=== PATIENT | female | born 1995 | race Caucasian/White ===

== ENCOUNTER 2022-04-02 10:10 | Emergency (ER) | payer MEDICAID, OTHER ==
[~2022-04-02] VITALS: Ht 162.6 cm; Wt 70.9 kg
[2022-04-02 10:36] VITALS: BP 132/72
[2022-04-02] MEDS ORDERED: IBUPROFEN 800 MG TAB PO ONE (10:45)
[2022-04-02] MEDS ORDERED: IBUP800T27 PO (11:16)
== END 2022-04-02 11:23 | disposition home or self-care (01) ==
LOC: ER 10:10
DX: S46.911A Strain of unspecified muscle, fascia and tendon at shoulder and upper arm level, right arm, initial encounter (principal); Z79.1 Long term (current) use of non-steroidal anti-inflammatories (NSAID); V89.2XXA Person injured in unspecified motor-vehicle accident, traffic, initial encounter; Y93.89 Activity, other specified; Y92.410 Unspecified street and highway as the place of occurrence of the external cause; Y99.8 Other external cause status
CPT/HCPCS: 73030

== ENCOUNTER 2023-04-20 17:39 | Emergency (ER) | payer OTHER ==
[~2023-04-20] VITALS: Ht 162.6 cm; Wt 68.2 kg
[~2023-04-20 17:39] MED LIST: IBUP-1456 PO
[2023-04-20 17:45] VITALS: BP 123/84; PULSE 112; RESP 20; TEMP 99.5; O2SAT 99
[2023-04-20] MEDS ORDERED: HYDROcodone-ACET 5/325MG TAB PO ONE (19:45)
[2023-04-20] MEDS ORDERED: IBUPROFEN 800 MG TAB PO ONE (19:45)
[2023-04-20] MEDS ORDERED: IBUP-1456 PO (22:06)
[2023-04-20] MEDS ORDERED: CYCL-614 PO (22:06)
== END 2023-04-20 22:11 | disposition home or self-care (01) ==
LOC: EDBD 17:39 → ER 17:39
DX: S46.811A Strain of other muscles, fascia and tendons at shoulder and upper arm level, right arm, initial encounter (principal); S16.1XXA Strain of muscle, fascia and tendon at neck level, initial encounter; S09.8XXA Other specified injuries of head, initial encounter; Z79.1 Long term (current) use of non-steroidal anti-inflammatories (NSAID); Z79.899 Other long term (current) drug therapy; V49.49XA Driver injured in collision with other motor vehicles in traffic accident, initial encounter; Y93.I9 Activity, other involving external motion; Y92.89 Other specified places as the place of occurrence of the external cause; Y99.8 Other external cause status
CPT/HCPCS: 70450; 70490; 73030

== ENCOUNTER 2024-04-28 07:10 | Emergency (ER) | payer OTHER ==
[~2024-04-28] VITALS: Ht 162.6 cm; Wt 71.8 kg
[~2024-04-28 07:10] MED LIST changes: +CYCL-614 PO
[2024-04-28 07:34] VITALS: BP 112/77; PULSE 91; RESP 17; TEMP 98.6; O2SAT 99
--- NOTE | 2024-04-28 07:38 | ED.PDOC ---
[facility] HPI Comments A 28 YEAR OLD FEMALE PRESENTS TO THE ED WITH COMPLAINT OF VAGINAL BLEEDING DURING . PATIENT STATES SHE IS CURRENTLY , BUT IS NOT SURE HOW FAR ALONG SHE IS AT THIS TIME AND HAS BEEN EXPERIENCING VAGINAL BLEEDING OFF AND ON FOR THE PAST 3 WEEKS WITH HER BLEEDING AND LEFT SIDED PELVIC CRAMPING STARTING AGAIN OVER THE LAST 1 WEEK. PATIENT NOTES SHE HAS BEEN TO [facility] WHERE HERE WAS CONFIRMED, BUT NOTES SHE WAS NOT TOLD HOW FAR ALONG SHE WAS DUE TO HER HCG BEING TOO LOW. PATIENT DENIES DYSURIA, HEMATURIA, VAGINAL DISCHARGE, FEVER, CHILLS, SHORTNESS OF BREATH, CHEST PAIN, ABDOMINAL PAIN, NAUSEA, VOMITING, HEADACHE, OR OTHER COMPLAINTS. NO OTHER SYMPTOMS OR MODIFYING FACTORS AT THIS TIME. PATIENT IS ALERT, ORIENTED X 4, AND HAS STEADY GAIT. Chief Complaint: Vaginal Bleed Time Seen by MD: 07:12 Reviewed Notes: Nurses Notes, Medications, Allergies Allergies: Coded Allergies: NO KNOWN ALLERGIES (Unverified , 04/20/23) Home Meds Active Scripts Cyclobenzaprine HCl (Cyclobenzaprine Hydrochlo) 5 Mg Tab, 5 MG PO TID PRN for 30 Days, #90 TAB Prov:SANDI ONEAL 04/20/23 Ibuprofen (Ibuprofen) 800 Mg Tab, 1 TAB PO TID PRN for 30 Days, #90 TAB 1 Refill Prov:SANDI ONEAL 04/20/23 Ibuprofen (Ibuprofen) 800 Mg Tab, 1 TAB PO TID, #30 TAB Prov:GENEVIEVE SNOW 04/02/22 Information Source: Patient Mode of Arrival: Ambulatory Timing: Days Prehospital treatment: None Severity: Moderate Vaginal Discharge: None Vaginal Lesions: None Bleeding Quality: Bright Red Vaginal Mass: None Onset Of Mass/Bleeding: Spontaneous Sexual Activity: Last Consensual [place]: Unknown Control: None History of: Current Blood Type: Unknown Symptoms of Possible : None Associated Signs and Symptoms: Vaginal Bleeding, Cramping Past Medical History PAST MEDICAL HISTORY: Denies Surgical History: Denies all surgeries UMBRELLA CUTTER History: Denies all UMBRELLA CUTTER Hx Family History Family History: Reviewed,noncontributory to illness Social History Smoker: Non-Smoker Alcohol: Denies ETOH Use Drugs: Denies Drug Use Lives In: Home Constitutional: denies: chills, diaphoresis, fatigue, fever, malaise, sweats, weakness, others EENTM: denies: blurred vision, double vision, ear bleeding, ear discharge, ear drainage, ear pain, ear ringing, eye pain, eye redness, hearing loss, mouth pain, mouth swelling, nasal discharge, nose bleeding, nose congestion, nose pain, photophobia, tearing, throat pain, throat swelling, voice changes, others Respiratory: denies: cough, hemoptysis, orthopnea, SOB at rest, shortness of breath, SOB with excertion, stridor, wheezing, others Cardiovascular: denies: chest pain, dizzy spells, diaphoresis, Dyspnea on exertion, edema, irregular heart beat, left arm pain, lightheadedness, palpitations, PND, syncope, others Gastrointestinal: denies: abdomen distended, abdominal pain, blood streaked bowels, constipated, diarrhea, dysphagia, difficulty swallowing, hematemesis, melena, nausea, poor appetite, poor fluid intake, rectal bleeding, rectal pain, vomiting, others Genitourinary: reports: abnormal vagina bleeding, pain (PELVIC CRAMPING), ; denies: burning, dyspareunia, dysuria, flank pain, frequency, hematuria, incontinence, vagina discharge, urgency, others Neurological: denies: dizziness, fainting, headache, left sided numbness, left sided weakness, numbness, paresthesia, pre-existing deficit, right sided numbness, right sided weakness, seizure, speech problems, tingling, tremors, weakness, others Musculoskeletal: denies: back pain, gout, joint pain, joint swelling, muscle pain, muscle stiffness, neck pain, others Integumetry: denies: bruises, change in color, change in hair/nails, dryness, laceration, lesions, lumps, rash, wounds, others Allergic/Immunocompromised: denies: Difficulty Healing, Frequent Infections, Hives, Itching, others Hematologic/Lymphatic: denies: anemia, blood clots, easy bleeding, easy bruising, swollen glands, others Endocrine: denies: excessive hunger, excessive sweating, excessive thirst, excessive urination, flushing, intolerance to cold, intolerance to heat, unexplained weight gain, unexplained weight loss, others Psychiatric: denies: anxiety, bipolar disorder, depression, hopeless, panic disorder, schizophrenia, sleepless, suicidal, others All Other Systems: Reviewed and Negative Physical Exam General Appearance: No Apparent Distress, Normal HEENT: Normal ENT Inspection, PERRL/EOMI, Pharynx Normal, TMs Normal Neck: Full Range of Motion, Non-Tender, Normal, Normal Inspection Respiratory: Chest Non-Tender, Lungs Clear, No Accessory Muscle Use, No Respiratory Distress, Normal Breath Sounds Cardiovascular: No Edema, No JVD, No Murmur, No Gallop, Normal Peripheral Pulses, Regular Rate/Rhythm Breast Exam: Deferred Gastrointestinal: No Organomegaly, Non Tender, No Pulsatile Mass, Normal Bowel Sounds, Soft Genitalia: Deferred Pelvic: Normal External Exam, Tender Adnexa (MILD TENDERNESS LEFT PELVIC, NO GUARDING AND REBOUND TENDERNESS. ), Vaginal Bleeding (MILD VAGINAL BLEEEING, NO ACTIVELY VAGINAL BLEEDING AND BLOOD CLOTS. ) Rectal: Deferred Extremities: No calf tenderness, Normal capillary refill, Normal inspection, Normal range of motion, Non-tender, No pedal edema Musculoskeletal : Apperance: Normal Neurologic: Alert, nitric acid plant operator II-XII nml as Tested, No Motor Deficits, Normal Affect, Normal Mood, No Sensory Deficits Cerebellar Function: Normal Reflexes: Normal Skin: Dry, Normal Color, Warm Peripheral Pulses: 2+ carotid (R), 2+ carotid (L) Lymphatic: No Adenopathy Was a procedure done? Was a procedure done?: No Differential Diagnosis (UMBRELLA CUTTER) Vaginal Bleeding: - Complete, - Missed, - Threatened, Ectopic , Menstrual Bleeding, UTI, Vaginitis Mass / Lesion: N/A Vaginal Discharge: N/A X-Ray, Labs, Meds, VS Vital Signs Date Time Temp Pulse Resp B/P (MAP) Pulse Ox O2 Delivery O2 Flow Rate FiO2 04/28/24 07:34 98.6 91 17 112/77 (89) 99 98.6 04/28/24 07:25 98.6 91 17 112/77 (89) 99 Lab Test 04/28/24 07:35 04/28/24 07:22 Range/Units White Blood Count 6.9 4.4-10.8 10^3/uL Red Blood Count 5.48 H 4.0-5.20 10^6/uL Hemoglobin 12.1 L 12.2-16.2 g/dL Hematocrit 37.2 36.0-46.0 % Mean Corpuscular Volume 67.9 L 80.0-100.0 fL Mean Corpuscular Hemoglobin 22.1 L 28.0-32.0 pg Mean Corpuscular Hemoglobin Concent 32.5 32.0-36.0 g/dL Red Cell Distribution Width 14.9 H 11.8-14.3 % Platelet Count 364 140-450 10^3/uL Mean Platelet Volume 8.3 6.9-10.8 fL Neutrophils (%) (Auto) 53.3 37.0-80.0 % Lymphocytes (%) (Auto) 32.6 10.0-50.0 % Monocytes (%) (Auto) 11.0 0.0-12.0 % Eosinophils (%) (Auto) 2.3 0.0-7.0 % Basophils (%) (Auto) 0.8 0.0-2.0 % Neutrophils # (Auto) 3.7 1.6-8.6 10 ^3/uL Lymphocytes # (Auto) 2.2 0.4-5.4 10 ^3/uL Monocytes # (Auto) 0.8 0-1.3 10 ^3/uL Eosinophils # (Auto) 0.2 0-0.8 10 ^3/uL Basophils # (Auto) 0.1 0-0.2 10 ^3/uL Nucleated Red Blood Cells 0.0 % Sodium Level 139 136-145 mmol/L Potassium Level 3.7 3.5-5.1 mmol/L Chloride Level 108 H 98-107 mmol/L Carbon Dioxide Level 26 20-31 mmol/L Anion Gap 5 5-15 Blood Urea Nitrogen 10 9-23 mg/dL Creatinine 0.82 0.550-1.02 mg/dL Glomerular Filtration Rate Calc 99 >90 mL/min BUN/Creatinine Ratio 12.2 10.0-20.0 Serum Glucose 90 74-106 mg/dL Calcium Level 9.4 8.7-10.4 mg/dL Beta HCG, Quantitative 11.2 H 1.5-4.2 mIU/mL Urine Color Light-yellow Yellow Urine Clarity Clear Clear Urine pH 5.5 5.0-9.0 Urine Specific [place] 1.017 1.001-1.035 Urine Protein Negative Negative Urine Ketones Negative Negative Urine Blood 2+ H Negative /uL Urine Nitrite Negative Negative Urine Bilirubin Negative Negative Urine Urobilinogen Normal Negative mg/dL Urine Leukocyte Esterase Negative Negative /uL Urine RBC 5 0 - 4 /hpf Urine WBC 2 0 - 5 /hpf Urine Squamous Epithelial Cells Few <5 /hpf Urine Bacteria None seen None Seen /hpf Urine Glucose Normal Normal mg/dL Urine Test Negative Negative X-Ray, Labs, Meds, VS Comment LABS ORDERED: CBC, BMP, UA, BETA HCG QUANT REVIEWED AND INTERPRETED RESULTS: HCG QUANT 11.2, BLOOD 2+ US OB < 14 WKS: [INTERPRETED BY U.S. TECH. NO IUP VISUALIZED AT THIS TIME. LEFT OVARIAN CYST VISUALIZED MEASURING 2.8 CM X 2.1 CM. NO OTHER ABNORMALITIES VISUALIZED. PENDING RADIOLOGY REVIEW.] Images Reviewed?: Images reviewed and evaluated by me Time of 1ST Reevaluation: 09:45 Reevaluation 1ST: Improved Patient Education/Counseling: Diagnosis, Treatment, Need For Follow Up Family Education/Counseling: Diagnosis, Treatment, Need For Follow Up Medical Screening: No EMC Exist At This Time Departure 1 Departure Time of Disposition: 10:00 Impression: Primary Impression: Positive blood test Additional Impressions: Threatened in early Left ovarian cyst Disposition: 01 HOME / SELF CARE / HOMELESS Condition: Stable Additional Instructions: FOLLOW-UP WITH PCP AND [facility]ER IN 2 DAYS FOR BETA HCG QUANT RECHECK. TAKE MEDICATIONS PRESCRIBED. RETURN TO ED FOR ANY NEW OR WORSENING SYMPTOMS. Discharged With: Self Critical Care Note Critical Care Time?: No Stability Stability form required: No I personally scribed for GENEVIEVE SNOW ([email or web address]) on 04/28/24 at 07:38. Electronically submitted by Liu Howe ([email or web address]). I personally scribed for GENEVIEVE SNOW ([email or web address]) on 04/28/24 at 09:44. Electronically submitted by Liu Howe ([email or web address]). GENEVIEVE SNOW Apr 28, 2024 07:38
[2024-04-28 08:01] LABS: Basophils # (auto) 0.1 10 ^3/uL (0-0.2); Basophils % (auto) 0.8 % (0.0-2.0); Eosinophils # (auto) 0.2 10 ^3/uL (0-0.8); Eosinophils % (auto) 2.3 % (0.0-7.0); Hematocrit 37.2 % (36.0-46.0); Hemoglobin 12.1 g/dL (12.2-16.2); Lymphocytes # (auto) 2.2 10 ^3/uL (0.4-5.4); Lymphocytes % (auto) 32.6 % (10.0-50.0); Mean Corpuscular Hemoglobin 22.1 pg (28.0-32.0); Mean Corpuscular Hgb Conc. 32.5 g/dL (32.0-36.0); Mean Corpuscular Volume 67.9 fL (80.0-100.0); Monocytes # (auto) 0.8 10 ^3/uL (0-1.3); Neutrophils # (auto) 3.7 10 ^3/uL (1.6-8.6); Neutrophils % (auto) 53.3 % (37.0-80.0); Platelet Count (auto) 364 10^3/uL (140-450); Red Blood Cells 5.48 10^6/uL (4.0-5.20); Red Cell Distribution Width 14.9 % (11.8-14.3); White Blood Cell 6.9 10^3/uL (4.4-10.8)
[2024-04-28 08:09] LABS: Chloride 108 mmol/L (98-107); Potassium 3.7 mmol/L (3.5-5.1); Sodium 139 mmol/L (136-145)
[2024-04-28 08:10] LABS: Anion Gap 5 (5-15); Carbon Dioxide 26 mmol/L (20-31)
[2024-04-28 08:11] LABS: Calcium 9.4 mg/dL (8.7-10.4)
[2024-04-28 08:15] LABS: BUN/Creatinine Ratio 12.2 (10.0-20.0); Blood Urea Nitrogen 10 mg/dL (9-23); Glucose 90 mg/dL (74-106)
[2024-04-28 08:27] LABS: Urine Bacteria None Seen /hpf (None Seen)
[2024-04-28 09:11] LABS: Urine Blood 2+ /uL (Negative); Urine Clarity Clear (Clear); Urine Color Light-Yellow (Yellow); Urine Protein, UAD Negative (Negative); Urine Specific Gravity 1.017 (1.001-1.035); Urine Urobilinogen Normal (Negative); Urine WBC 2 /hpf (0 - 5); Urine pH 5.5 (5.0-9.0)
--- NOTE | 2024-04-28 10:23 | DVH ---
Procedure: US OB ULTRASOUND COMP LESS 14WKS 04/28/2024 08:57 AM Indication: VAGINAL BLEEDING. Beta HCG of 11.2. Comparison: None Technique: Real-time grayscale and color images were obtained utilizing transabdominal and transvagin al probes with spectral analysis performed. FINDINGS: UTERUS: Anteverted, measuring 8.4 cm in length. Homogeneous myometrium without a discrete lesion. The endometrial stripe measures 0.9 cm. No free fluid in the endometrial canal. Few subcentimeter naboth ava cysts are seen. OVARIES: Normal in size bilaterally with normal echotexture and preserved vascular flow. A 2.8 cm lef t ovarian cyst noted. CUL-DE-SAC: Trace fluid noted, within physiologic limits. IMPRESSION: 1. No intrauterine . 2. A 2.8 cm left ovarian cyst is seen likely a functional follicular cyst.
== END 2024-04-28 09:54 | disposition home or self-care (01) ==
LOC: ER 07:10
DX: O20.0 Threatened abortion (principal); O34.81 Maternal care for other abnormalities of pelvic organs, first trimester; N83.202 Unspecified ovarian cyst, left side; Z3A.01 Less than 8 weeks gestation of pregnancy; Z79.899 Other long term (current) drug therapy
CPT/HCPCS: 36415; 76801; 76817; 80048; 81001; 81025; 84702; 85025

== ENCOUNTER 2024-08-08 07:13 | Emergency (ER) | payer OTHER ==
[~2024-08-08] VITALS: Ht 162.6 cm; Wt 72.3 kg
[2024-08-08 08:01] VITALS: BP 119/87; PULSE 84; RESP 17; TEMP 97.8; O2SAT 100
[2024-08-08 08:07] LABS: Urine Bacteria None Seen /hpf (None Seen)
[2024-08-08 08:24] LABS: Urine Blood TRACE /uL (Negative); Urine Clarity Clear (Clear); Urine Color Colorless (Yellow); Urine Protein, UAD Negative (Negative); Urine Specific Gravity 1.013 (1.001-1.035); Urine Squamous Epithelial Cell FEW /hpf (<5); Urine Urobilinogen Normal (Negative); Urine WBC 3 /HPF (0-5)
[2024-08-08 08:25] LABS: Urine Sperm PRESENT /hpf (None Seen)
[2024-08-08 09:32] LABS: Vaginal Bacteria Many; Vaginal Epithelial Cells Few; Vaginal Trichomonas Not Present
[2024-08-08 09:33] LABS: Vaginal Clue Cells Rare
[2024-08-08] MEDS ORDERED: MET075VC VG (09:43)
[2024-08-08] MEDS ORDERED: METR-344 PO (09:45)
--- NOTE | 2024-08-08 09:45 | ED.PDOC ---
Musculoskeletal HPI Comments 28 year presents for vaginal irritation itching x3 days. No other complaint or concern Has not tried any medications Denies urgency frequency dysuria or hematuria Denies abdominal pain/pelvic pain/nausea vomiting Denies fevers chills night sweats unintentional weight loss Chief Complaint: Vaginal Discharge Time Seen by MD: 07:46 Primary Care Provider: NONE Reviewed Notes: Nurses Notes, Medications, Allergies Allergies: Coded Allergies: NO KNOWN ALLERGIES (Unverified , 04/20/23) Home Meds Active Scripts Cyclobenzaprine HCl (Cyclobenzaprine Hydrochlo) 5 Mg Tab, 5 MG PO TID PRN for 30 Days, #90 TAB Prov:SANDI ONEAL BOTTOM LINER 04/20/23 Ibuprofen (Ibuprofen) 800 Mg Tab, 1 TAB PO TID PRN for 30 Days, #90 TAB 1 Refill Prov:SANDI ONEAL BOTTOM LINER 04/20/23 Ibuprofen (Ibuprofen) 800 Mg Tab, 1 TAB PO TID, #30 TAB Prov:GENEVIEVE SNOW 04/02/22 Information Source: Patient Mode of Arrival: Ambulatory Past Medical History PAST MEDICAL HISTORY: Denies Surgical History: Denies all surgeries COLORER History: Denies all COLORER Hx Family History Family History: Reviewed,noncontributory to illness Social History Smoker: Non-Smoker Alcohol: Denies ETOH Use Drugs: Denies Drug Use Lives In: Home All Other Systems: Reviewed and Negative (per hpi) Physical Exam General Appearance: No Apparent Distress, Normal HEENT: Normal ENT Inspection, Pharynx Normal, TMs Normal Neck: Full Range of Motion, Non-Tender, Normal, Normal Inspection Respiratory: Chest Non-Tender, Lungs Clear, No Accessory Muscle Use, No Respiratory Distress, Normal Breath Sounds Cardiovascular: No Edema, No JVD, No Murmur, No Gallop, Regular Rate/Rhythm Breast Exam: Deferred Gastrointestinal: No Organomegaly, Non Tender, No Pulsatile Mass, Normal Bowel Sounds, Soft Genitalia: Normal (Motor Vehicle License Clerk in the room:External vaginal exam no genital warts or lesions. Vaginal canal shows +milky white discharge. No cervical motion tenderness, normal adnexa. No vaginal bleeding or cervicitis.) Pelvic: Deferred Rectal: Deferred Extremities: No calf tenderness, Normal capillary refill, Normal inspection, Normal range of motion, Non-tender, No pedal edema Musculoskeletal : Apperance: Normal Neurologic: Alert, No Motor Deficits, Normal Affect, Normal Mood, No Sensory Deficits Cerebellar Function: Normal Reflexes: Normal Skin: Dry, Normal Color, Warm Lymphatic: No Adenopathy Was a procedure done? Was a procedure done?: No Differential Diagnosis EXT Differential Diagnosis: Other X-Ray, Labs, Meds, VS Vital Signs Date Time Temp Pulse Resp B/P (MAP) Pulse Ox O2 Delivery O2 Flow Rate FiO2 08/08/24 08:01 84 17 100 Room Air 08/08/24 08:01 97.8 84 17 119/87 (98) 100 97.8 08/08/24 07:22 97.8 84 17 119/87 (98) 100 Lab Test 08/08/24 08:14 08/08/24 07:56 Range/Units Vaginal WBC (Wet Prep) Few Vaginal RBC (Wet Prep) Rare Vaginal Epithelial Cells (Wet Prep) Few Vaginal Bacteria (Wet Prep) Many Vaginal Trichomonas (Wet Prep) Not present Vaginal Yeast (Wet Prep) None seen Vaginal Clue Cells (Wet Prep) Rare Urine Color Colorless Yellow Urine Clarity Clear Clear Urine pH 5.0 5.0-9.0 Urine Specific [place] 1.013 1.001-1.035 Urine Protein Negative Negative Urine Ketones Negative Negative Urine Blood Trace H Negative /uL Urine Nitrite Negative Negative Urine Bilirubin Negative Negative Urine Urobilinogen Normal Negative mg/dL Urine Leukocyte Esterase Trace Negative /uL Urine RBC 2 0 - 4 /hpf Urine Microscopic WBC 3 0-5 /HPF Urine Squamous Epithelial Cells Few <5 /hpf Urine Bacteria None seen None Seen /hpf Urine Sperm Present None Seen /hpf Urine Glucose Normal Normal mg/dL Urine Test Negative Negative Chlamydia trachomatis ([facility]) Pending Neisseria gonorrhoeae ([facility]) Pending X-Ray, Labs, Meds, VS Comment female presents with vaginal discharge Well appearing, vitals within normal limits, benign abdominal exam Concern for bacterial vaginosis vs less likely cervicitis or UTI. No signs to suggest PID or tubo-ovarian abscess Labs remarkable for UA within normal limits, negative. Wet prep + for BV F/u with PMD in 48 hours if symptoms persist. Knows to return for worsening symptoms, fever, continued symptoms, abdominal pain, dysuria, hematuria or any other concern On reevaluation, patient had symptomatic improvement. Patient is stable for discharge at this time. External notes reviewed. Test results and diagnostic imaging interpreted. All diagnostic findings, discharge care, education and instructions provided Follow-up with PCP in 2 to 3 days Patient verbalized understanding and agreed to treatment plan Vital signs stable, afebrile, no acute distress noted Patient ambulatory with strong steady gait Advised to return precautions for any new or worsening symptoms, return to ER immediately for re-evaluation Patient is aware that the purpose of this visit was for an acute medical emergency requiring emergent stabilization. Chronic conditions, including malignancies have not been ruled out. Patient is instructed to follow up with PCP as directed and discharge instructions for continued care and workup. If unable to arrange follow-up, patient is to return to the emergency department for reassessment. Patient (parent or legal guardian if applicable) was given verbal and written discharge instructions and acknowledges understanding. Time of 1ST Reevaluation: 09:30 Reevaluation 1ST: Improved Patient Education/Counseling: Diagnosis, Treatment Family Education/Counseling: Diagnosis, Treatment Departure 1 Departure Time of Disposition: 09:42 Impression: Primary Impression: Bacterial vaginosis Disposition: HOME / SELF CARE / HOMELESS Condition: Stable e-Prescriptions Metronidazole (Flagyl) 500 Mg Tab 1 TAB PO BID for 7 Days, #14 TAB 0 Refills Prov: KAELYN ARROYO NP 08/08/24 Metronidazole Vaginal (METROGEL VAGINAL) 1 Applic Ap 1 APPLIC VG QPM for 10 Days, #70 GRAMS 0 Refills Prov: KAELYN ARROYO NP 08/08/24 Critical Care Note Critical Care Time?: No Stability Stability form required: No Heart Score Heart Score: Heart Score Response (Comments) Value History N/A 0 EKG N/A 0 Age N/A 0 Risk Factors N/A 0 Troponin N/A 0 Total 0 KAELYN ARROYO NP Aug 08, 2024 09:45
[2024-08-09 21:06] LABS: Chlamydia Trachomatis, NAA Negative (Negative); Neisseria gonorrhoeae, NAA Negative (Negative)
== END 2024-08-08 09:45 | disposition home or self-care (01) ==
LOC: ER 07:13
DX: N76.0 Acute vaginitis (principal); B96.89 Other specified bacterial agents as the cause of diseases classified elsewhere; Z79.1 Long term (current) use of non-steroidal anti-inflammatories (NSAID); Z79.899 Other long term (current) drug therapy
CPT/HCPCS: 81001; 81025; 87210

== ENCOUNTER 2025-01-03 08:34 | Emergency (ER) | payer MEDICAID, OTHER ==
[~2025-01-03] VITALS: Ht 162.6 cm; Wt 69.5 kg
[~2025-01-03 08:34] MED LIST changes: +MET075VC VG; +METR-344 PO
[2025-01-03 09:42] LABS: Urine Protein, UAD Negative (Negative)
[2025-01-03 10:34] LABS: Hematocrit 37.0 % (36.0-46.0); Hemoglobin 12.4 g/dL (12.2-16.2); Mean Corpuscular Hemoglobin 22.3 pg (28.0-32.0); Mean Corpuscular Volume 66.8 fL (80.0-100.0); Nucleated Red Blood Cells % 0.1 %
--- NOTE | 2025-01-03 10:41 | ED.PDOC ---
History of Present Illness HPI Comments 29-year-old female presents with a chief complaint of abdominal pain while , with associated nausea. Patient mentions that she is , , but is unsure how far along she is. Patient mentions that her LMP was in November 2024. Patient reports that she is having abdominal cramping and is having as sociated nausea, but no vomiting. 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 Chief Complaint: Abdominal Pain Time Seen by MD: 09:58 Primary Care Provider: LISA Pike Notes: Medications, Allergies Allergies: Coded Allergies: NO KNOWN ALLERGIES (Unverified , 04/20/23) Home Meds Active Scripts Metronidazole (Flagyl) 500 Mg Tab, 1 TAB PO BID for 7 Days, #14 TAB 0 Refills Prov:KAELYN ARROYO CLINICAL ACCOUNT SPECIALIST 08/08/24 Metronidazole Vaginal (METROGEL VAGINAL) 1 Applic Ap, 1 APPLIC VG QPM for 10 D ays, #70 GRAMS 0 Refills Prov:KAELYN ARROYO CLINICAL ACCOUNT SPECIALIST 08/08/24 Cyclobenzaprine HCl (Cyclobenzaprine Hydrochlo) 5 Mg Tab, 5 MG PO TID PRN for 30 Days, #90 TAB Prov:SANDI ONEALP 04/20/23 Ibuprofen (Ibuprofen) 800 Mg Tab, 1 TAB PO TID PRN for 30 Days, #90 TAB 1 Refill Prov:SANDI ONEALP 04/20/23 Ibuprofen (Ibuprofen) 800 Mg Tab, 1 TAB PO TID, #30 TAB Prov:GENEVIEVE SNOW 04/02/22 Information Source: Patient Mode of Arrival: Ambulatory Severity: Moderate Timing: Days Duration: Since onset Prehospital treatment: None Past Medical History PAST MEDICAL HISTORY: Denies Surgical History: Denies all surgeries 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 Family History Family History: Reviewed,noncontributory to illness Social History Smoker: Non-Smoker Alcohol: Denies ETOH Use Drugs: Denies Drug Use Lives In: Home Constitutional: denies: chills, diaphoresis, fatigue, fever, malaise, sweats, weakness, others EENTM: denies: blurred vision, double vision, ear bleeding, ear discharge, ear drainage, ear pain, ear ringing, eye pain, eye redness, hearing loss, mouth pain, mouth swelling, nasal discharge, nose bleeding, nose congestion, nose pain, photophobia, tearing, throat pain, throat swelling, voice changes, others Respiratory: denies: cough, hemoptysis, orthopnea, SOB at rest, shortness of breath, SOB with excertion, stridor, wheezing, others Cardiovascular: denies: chest pain, dizzy spells, diaphoresis, Dyspnea on exertion, edema, irregular heart beat, left arm pain, lightheadedness, palpitations, PND, syncope, others Gastrointestinal: reports: abdominal pain, nausea; denies: abdomen distended, blood streaked bowels, constipated, diarrhea, dysphagia, difficulty swallowing, hematemesis, melena, poor appetite, poor fluid intake, rectal bleeding, rectal pain, vomiting, others Genitourinary: reports: ; denies: abnormal vagina bleeding, burning, dyspareunia, dysuria, flank pain, frequency, hematuria, incontinence, pain, vagina discharge, urgency, others Neurological: denies: dizziness, fainting, headache, left sided numbness, left sided weakness, numbness, paresthesia, pre-existing deficit, right sided numbness, right sided weakness, seizure, speech problems, tingling, tremors, weakness, others Musculoskeletal: denies: back pain, gout, joint pain, joint swelling, muscle pain, muscle stiffness, neck pain, others Integumetry: denies: bruises, change in color, change in hair/nails, dryness, laceration, lesions, lumps, rash, wounds, others Allergic/Immunocompromised: denies: Difficulty Healing, Frequent Infections, Hives, Itching, others Hematologic/Lymphatic: denies: anemia, blood clots, easy bleeding, easy bruising, swollen glands, others Endocrine: denies: excessive hunger, excessive sweating, excessive thirst, excessive urination, flushing, intolerance to cold, intolerance to heat, unexplained weight gain, unexplained weight loss, others Psychiatric: denies: anxiety, bipolar disorder, depression, hopeless, panic disorder, schizophrenia, sleepless, suicidal, others All Other Systems: Reviewed and Negative Physical Exam General Appearance: No Apparent Distress, Normal HEENT: Normal ENT Inspection, Pharynx Normal, TMs Normal Neck: Full Range of Motion, Non-Tender, Normal, Normal Inspection Respiratory: Chest Non-Tender, Lungs Clear, No Accessory Muscle Use, No Respiratory Distress, Normal Breath Sounds Cardiovascular: No Edema, No JVD, No Murmur, No Gallop, Normal Peripheral Pulses, Regular Rate/Rhythm Breast Exam: Deferred Gastrointestinal: No Organomegaly, Non Tender, No Pulsatile Mass, Normal Bowel Sounds, Soft Genitalia: Deferred Pelvic: Deferred Rectal: Deferred Extremities: No calf tenderness, Normal capillary refill, Normal inspection, No rmal range of motion, Non-tender, No pedal edema Musculoskeletal : Apperance: Normal Neurologic: Alert, logistics and planning manager II-XII nml as Tested, No Motor Deficits, Normal Affect, Normal Mood, No Sensory Deficits Cerebellar Function: Normal Reflexes: Normal Skin: Dry, Normal Color, Warm Lymphatic: No Adenopathy Was a procedure done? Was a procedure done?: No Differential Dx Considerations may include: Viral syndrome, threatened miscarriage, normal X-Ray, Labs, Meds, VS Vital Signs Date Time Temp Pulse Resp B/P (MAP) Pulse Ox O2 Delivery O2 Flow Rate FiO2 01/03/25 11:47 98.1 86 14 114/68 (83) 100 98.1 01/03/25 11:47 86 14 100 Room Air 01/03/25 09:35 98.2 92 17 103/67 (79) 99 98.2 Lab Test 01/03/25 10:08 01/03/25 09:00 Range/Units White Blood Count 6.6 4.4-10.8 10^3/uL Red Blood Count 5.54 H 4.0-5.20 10^6/uL Hemoglobin 12.4 12.2-16.2 g/dL Hematocrit 37.0 36.0-46.0 % Mean Corpuscular Volume 66.8 L 80.0-100.0 fL Mean Corpuscular Hemoglobin 22.3 L 28.0-32.0 pg Mean Corpuscular Hemoglobin Concent 33.4 32.0-36.0 g/dL Red Cell Distribution Width 15.7 H 11.8-14.3 % Platelet Count 367 140-450 10^3/uL Mean Platelet Volume 8.1 6.9-10.8 fL Neutrophils (%) (Auto) 65.6 37.0-80.0 % Lymphocytes (%) (Auto) 24.1 10.0-50.0 % Monocytes (%) (Auto) 8.8 0.0-12.0 % Eosinophils (%) (Auto) 0.5 0.0-7.0 % Basophils (%) (Auto) 1.0 0.0-2.0 % Neutrophils # (Auto) 4.3 1.6-8.6 10 ^3/uL Lymphocytes # (Auto) 1.6 0.4-5.4 10 ^3/uL Monocytes # (Auto) 0.6 0-1.3 10 ^3/uL Eosinophils # (Auto) 0 0-0.8 10 ^3/uL Basophils # (Auto) 0.1 0-0.2 10 ^3/uL Nucleated Red Blood Cells 0.1 % Sodium Level 136 136-145 mmol/L Potassium Level 3.7 3.5-5.1 mmol/L Chloride Level 105 98-107 mmol/L Carbon Dioxide Level 24 20-31 mmol/L Anion Gap 7 5-15 Blood Urea Nitrogen 6 L 9-23 mg/dL Creatinine 0.77 0.550-1.02 mg/dL Glomerular Filtration Rate Calc 106 >90 mL/min BUN/Creatinine Ratio 7.8 L 10.0-20.0 Serum Glucose 85 74-106 mg/dL Calcium Level 10.0 8.7-10.4 mg/dL Beta HCG, Quantitative 17211.8 H 1.5-4.2 mIU/mL Urine Color Light-yellow Yellow Urine Clarity Clear Clear Urine pH 6.5 5.0-9.0 Urine Specific [place] 1.015 1.001-1.035 Urine Protein Negative Negative Urine Ketones Negative Negative Urine Blood Negative Negative /uL Urine Nitrite Negative Negative Urine Bilirubin Negative Negative Urine Urobilinogen Normal Negative mg/dL Urine Leukocyte Esterase 1+ Negative /uL Urine RBC 1 0 - 4 /hpf Urine Microscopic WBC 1 0-5 /HPF Urine Squamous Epithelial Cells Few <5 /hpf Urine Bacteria Few H None Seen /hpf Urine Glucose Normal Normal mg/dL Time of 1ST Reevaluation: 10:28 Reevaluation 1ST: Unchanged Patient Education/Counseling: Diagnosis, Treatment Family Education/Counseling: No Family Present SEPSIS Sepsis Screen Date sepsis recognized/suspect: Jan 03, 2025 Time Sepsis recognized/suspect: 855 Recent Procedure: No On Antibiotic Therapy: No Respiratory Rate >20: No Heart Rate >90: Yes Temp<36 C (96.8 F) or >38.3 C: No SBP <90 or MAP <65 mmHG: No New Acute Mental Status Change: No Is the patient on CPAP, BIPAP,: No Physician Orders Ob Ultrasound Comp Less 14wks (01/03/25 10:00) Vital Signs Date Time Temp Pulse Resp B/P (MAP) Pulse Ox O2 Delivery O2 Flow Rate FiO2 01/03/25 11:47 98.1 86 14 114/68 (83) 100 98.1 01/03/25 11:47 86 14 100 Room Air 01/03/25 09:35 98.2 92 17 103/67 (79) 99 98.2 Laboratory Tests Test 01/03/25 10:08 White Blood Count 6.6 10^3/uL (4.4-10.8) Departure 1 Departure Time of Disposition: 12:18 (Patient likely with a applied to . We will discharge patient home with outpatient follow up) Impression: Primary Impression: Threatened miscarriage in early Disposition: 01 HOME / SELF CARE / HOMELESS Condition: Stable Referrals: CHITRA BECERRIL DO Additional Instructions: You have a threatened miscarriage. Your beta hcg level today was 56102. Your ultrasound showed a gestational sac without an obvious fetus as well as a subchorionic hematoma. You should follow up with OBGYN within three days to recheck your blood work and ultrasound. If your symptoms worsen or you have any other concerns then please return to the ER. Discharged With: Self Critical Care Note Critical Care Time?: No Stability Stability form required: No Heart Score Heart Score: Heart Score Response (Comments) Value History N/A 0 EKG N/A 0 Age N/A 0 Risk Factors N/A 0 Troponin N/A 0 Total 0 I personally scribed for LORENZO CAPPS MD ([email or web address]) on 01/03/25 at 10:41. Electronically submitted by Saroj Miller ([email or web address]). LORENZO CAPPS MD Jan 03, 2025 10:41
[2025-01-03 10:42] LABS: Chloride 105 mmol/L (98-107); Potassium 3.7 mmol/L (3.5-5.1)
[2025-01-03 10:43] LABS: Anion Gap 7 (5-15); Calcium 10.0 mg/dL (8.7-10.4); Carbon Dioxide 24 mmol/L (20-31)
[2025-01-03 10:48] LABS: BUN/Creatinine Ratio 7.8 (10.0-20.0); Glucose 85 mg/dL (74-106)
[2025-01-03 11:03] LABS: Blood Urea Nitrogen 6 mg/dL (9-23); Sodium 136 mmol/L (136-145)
--- NOTE | 2025-01-03 12:04 | DVH ---
OB ULTRASOUND <14 WEEKS: HISTORY: abdominal pain and vaginal bleeding TECHNIQUE: Multiple real-time grayscale sonographic images of the pelvis with duplex Doppler color f low, spectral and M-mode analysis. TRANSDUCERS: Transabdominal and transvaginal COMPARISON: US OB ULTRASOUND COMP LESS 14WKS on DOS: 04/28/24 FINDINGS: The uterus measures 9.0 x 5.3 x 4.8 cm The cervix is not visualized Right ovary measures 3.1 x 2.0 x 3.0 cm with normal Doppler color flow. Right ovarian cyst measures 2 .5 cm. Left ovary measures 3.5 x 1.6 x 2.2 cm with normal Doppler color flow. Left ovarian cyst measures 1.3 cm. Possible early IUP single fetus at 5 weeks and 3 days average ultrasound age based on mean gestatio nal sac size of 1.29 cm heart rate detected at 0 beats per minute. Yolk sac is present. Amniotic fluid is subjectively within normal limits Shivani-gestational space: Subchorionic hematoma is present adjacent to the gestational sac measuring 0. 8 cm. IMPRESSION: Gestational sac within the uterus with no identifiable pole. This may be warehouse representative of a b lighted versus early . Correlation with follow-up beta hCG levels. Subchorionic hematoma is present measuring 0.8 cm. Follow-up ultrasound could be performed if clinically indicated.
[2025-01-03 12:47] VITALS: BP 111/73; PULSE 63; RESP 16; TEMP 99.3; O2SAT 99
== END 2025-01-03 12:52 | disposition home or self-care (01) ==
LOC: ER 08:34
DX: O20.0 Threatened abortion (principal); Z3A.01 Less than 8 weeks gestation of pregnancy; Z79.1 Long term (current) use of non-steroidal anti-inflammatories (NSAID); Z79.899 Other long term (current) drug therapy
CPT/HCPCS: 36415; 76801; 80048; 81001; 84702; 85025; 86900; 86901

== ENCOUNTER 2025-01-14 10:06 | Outpatient (CLI) | payer MEDICAID ==
[2025-01-14 11:27] LABS: Hematocrit 37.6 % (36.0-46.0); Hemoglobin 12.5 g/dL (12.2-16.2); Mean Corpuscular Hemoglobin 22.2 pg (28.0-32.0); Mean Corpuscular Volume 67.0 fL (80.0-100.0); Nucleated Red Blood Cells % 0.0 %
[2025-01-14 11:45] LABS: Amphetamine Screen, Urine Neg (NEGATIVE); Barbiturate Scree,Urine Neg (NEGATIVE); Benzodiazephine Screen, Urine Neg (NEGATIVE); Cocaine Screen, Urine Neg (NEGATIVE); Opiate Scree,Urine Neg (NEGATIVE)
[2025-01-14 11:46] LABS: Cannabinoid Screen, Urine Pos (NEGATIVE)
[2025-01-14 11:48] LABS: Phencyclidine Screen, Urine Neg (NEGATIVE)
[2025-01-16 02:06] LABS: Chlamydia Trachomatis, NAA Negative (Negative); Neisseria gonorrhoeae, NAA Negative (Negative)
== END 2025-01-14 17:00 | disposition home or self-care (01) ==
LOC: LAB 10:06
DX: O23.40 Unspecified infection of urinary tract in pregnancy, unspecified trimester (principal); N39.0 Urinary tract infection, site not specified; Z11.3 Encounter for screening for infections with a predominantly sexual mode of transmission; Z20.09 Contact with and (suspected) exposure to other intestinal infectious diseases; Z3A.00 Weeks of gestation of pregnancy not specified
CPT/HCPCS: 36415; 80307; 83036; 84144; 84702; 85025; 86703; 86762; 86780; 86787; 86850; 86900; 86901; 87086; 87340